=== PATIENT | female | born 1980 | race Caucasian/White ===

== ENCOUNTER 2017-11-02 21:01 | Emergency (ER) | payer BC, OTHER ==
[2017-11-02 21:21] LABS: ADD MAN DIFF? NO
[2017-11-02 21:24] LABS: BASO % 0 % (0-3); EOS # 0.2 x10^3/uL (0.0-0.7); EOS % 2 % (0-3); HEMATOCRIT 40.1 % (36.0-47.0); HEMOGLOBIN 14.1 g/dL (12.0-15.5); LYMPH # 3.9 x10^3/uL (1.0-4.8); LYMPH % 36 % (24-48); MEAN CORPUSCULAR HEMOGLOBIN 33 pg (25-35); MEAN CORPUSCULAR HGB CONC 35 g/dL (31-37); MEAN CORPUSCULAR VOLUME 93 fL (79-100); MONO # 0.6 x10^3/uL (0.0-1.1); MONO % 6 % (0-9); NEUT # 6.2 x10^3uL (1.8-7.7); NEUT % 57 % (31-73); PLATELET COUNT 369 x10^3/uL (140-400); RED BLOOD COUNT 4.33 x10^6/uL (3.50-5.40); RED CELL DISTRIBUTION WIDTH 13.1 % (11.5-14.5)
[2017-11-02 21:34] LABS: ANION GAP 19 (6-14); BLOOD UREA NITROGEN 8 mg/dL (7-20); BUN/CREATININE RATIO 13 (6-20); CALCIUM 8.9 mg/dL (8.5-10.1); CARBON DIOXIDE 17 mmol/L (21-32); CHLORIDE 104 mmol/L (98-107); CREATININE 0.6 mg/dL (0.6-1.0); GFR 111.3; GLUCOSE 80 mg/dL (70-99); POTASSIUM 3.6 mmol/L (3.5-5.1); SODIUM 140 mmol/L (136-145)
[2017-11-02 21:34] LABS: D-DIMER 0.37 ug/mlFEU (0.00-0.50)
[2017-11-02] MEDS: FAMOTIDINE 20 MG/2 ML VIAL IVP (21:34)
[2017-11-02] MEDS: fentaNYL PF VIAL 100 MCG/2 ML VIAL IV ×2 (21:34→23:31)
[2017-11-02 21:41] LABS: ALBUMIN 3.8 g/dL (3.4-5.0); ALBUMIN/GLOBULIN RATIO 1.1 (1.0-1.7); ALK PHOS 66 U/L (46-116); ALT (SGPT) 19 U/L (14-59); AST (SGOT) 23 U/L (15-37); C-REACTIVE PROTEIN 9.4 mg/L (0-3.3); TOTAL BILIRUBIN 0.3 mg/dL (0.2-1.0); TOTAL PROTEIN 7.4 g/dL (6.4-8.2)
[2017-11-02] MEDS: ONDANSETRON PF 4 MG/2 ML VIAL. IV ×2 (22:02→23:31)
[2017-11-02 22:14] LABS: TROPONINI < 0.017 ng/mL (0.000-0.055)
[2017-11-02 23:20] LABS: BILIRUBIN,URINE NEGATIVE (NEG); CLARITY,URINE CLEAR; COLOR,URINE YELLOW; GLUCOSE,URINE NEGATIVE (NEG); NITRITE,URINE NEGATIVE (NEG); PH,URINE 5.5; PROTEIN,URINE NEGATIVE (NEG-TRACE)
[2017-11-02 23:31] LABS: BACTERIA,URINE FEW /HPF (0-FEW); RBC,URINE 20-40 /HPF (0-2); SQUAMOUS EPITHELIAL CELL,UR MOD /LPF; WBC,URINE OCC /HPF (0-4)
== END 2017-11-03 02:15 | disposition home or self-care (01) ==
LOC: ER 11-03 02:15
DX: R10.12 Left upper quadrant pain (principal); M54.30 Sciatica, unspecified side; Z90.710 Acquired absence of both cervix and uterus; Z88.5 Allergy status to narcotic agent
CPT/HCPCS: 36415; 71045; 74176; 80053; 81001; 84484; 85025; 85379; 86140; 93005; 96374; 96375; 96376; 99285-25; J2405; J3010; S0028

== ENCOUNTER 2017-11-23 12:49 | Emergency (ER) | payer BC ==
[2017-11-23] MEDS: IV NORMAL SALINE 1000ML BAG 1,000 ML IV ×4 (13:10→14:37)
[2017-11-23] MEDS: ONDANSETRON ODT 4 MG TAB.RAPDIS. PO ×2 (13:14)
[2017-11-23 13:26] LABS: ADD MAN DIFF? NO
[2017-11-23 13:30] LABS: BASO % 0 % (0-3); EOS # 0.2 x10^3/uL (0.0-0.7); EOS % 2 % (0-3); HEMATOCRIT 44.1 % (36.0-47.0); HEMOGLOBIN 15.4 g/dL (12.0-15.5); LYMPH # 3.5 x10^3/uL (1.0-4.8); LYMPH % 33 % (24-48); MEAN CORPUSCULAR HEMOGLOBIN 32 pg (25-35); MEAN CORPUSCULAR HGB CONC 35 g/dL (31-37); MEAN CORPUSCULAR VOLUME 92 fL (79-100); MONO # 0.8 x10^3/uL (0.0-1.1); MONO % 7 % (0-9); NEUT # 6.1 x10^3uL (1.8-7.7); NEUT % 58 % (31-73); PLATELET COUNT 389 x10^3/uL (140-400); RED BLOOD COUNT 4.79 x10^6/uL (3.50-5.40); RED CELL DISTRIBUTION WIDTH 13.1 % (11.5-14.5); WHITE BLOOD COUNT 10.6 x10^3/uL (4.0-11.0)
[2017-11-23 13:42] LABS: ANION GAP 14 (6-14); BLOOD UREA NITROGEN 13 mg/dL (7-20); BUN/CREATININE RATIO 14 (6-20); CALCIUM 9.5 mg/dL (8.5-10.1); CARBON DIOXIDE 25 mmol/L (21-32); CHLORIDE 98 mmol/L (98-107); CREATININE 0.9 mg/dL (0.6-1.0); GFR 69.7; GLUCOSE 106 mg/dL (70-99); POTASSIUM 3.3 mmol/L (3.5-5.1); SODIUM 137 mmol/L (136-145)
[2017-11-23] MEDS: HYDROcodone/CHLORPHEN POLIS 5 ML SUS.ER.12H PO ×2 (13:43)
[2017-11-23 13:47] LABS: ALBUMIN 4.3 g/dL (3.4-5.0); ALBUMIN/GLOBULIN RATIO 1.1 (1.0-1.7); ALK PHOS 72 U/L (46-116); ALT (SGPT) 72 U/L (14-59); AST (SGOT) 58 U/L (15-37); TOTAL BILIRUBIN 0.6 mg/dL (0.2-1.0); TOTAL PROTEIN 8.3 g/dL (6.4-8.2)
[2017-11-23 13:53] LABS: INFLUENZA A PATIENT NEGATIVE (NEGATIVE); INFLUENZA B PATIENT NEGATIVE (NEGATIVE); OBC FLU VALID
[2017-11-23] MEDS: ONDANSETRON PF 4 MG/2 ML VIAL. IV ×2 (15:23)
[2017-11-23] MEDS: KETOROLAC 30 MG/ML INJ. IV ×2 (15:24)
== END 2017-11-23 16:10 | disposition home or self-care (01) ==
LOC: ER 12:49
DX: R05 Cough (principal); R11.0 Nausea; M79.1 Myalgia; Z90.49 Acquired absence of other specified parts of digestive tract; Z90.710 Acquired absence of both cervix and uterus; Z88.5 Allergy status to narcotic agent
CPT/HCPCS: 36415; 80053; 85025; 87804; 87804-59; 96361; 96374; 96375; 99285-25; J1885; J2405; J7030; Q0162